=== PATIENT | female | born 1975 | race African-American/Black ===

== ENCOUNTER → 2016-10-09 | Outpatient (CLI) | payer OTHER ==
--- NOTE | ~2016-10-09 | MY6 ---
[facility] A Service of [facility] & [facility] RADIOLOGY TEXT RESULTS PATIENT: XENIA MCGINNIS LOCATION: [facility] : 73 UNIT #: [id number] AGE: [address]: Jef Davila MD SEX: F ORDER DR: [id number] [facility] [address] [place], [place] [address] [id number] O MR#: [id number] Acc #: [id number] NAME: XENIA MCGINNIS : 1975 SEX: F STUDY DATE/TIME: 10/09/2016 14:35 UNIT: [facility] ROOM: STUDY DESCRIPTION: MY Mammogram Dx Dig Ric Attending Physician: Jef Davila M.D. Referring Physician: Jef Davila M.D. Ordering Physician: Jef Davila M.D. Primary Care Physician: Jay Jay Martínez M.D. MEDICAL IMAGING REPORT This report is preliminary unless electronic signature is present EXAM Bilateral digital diagnostic mammogram with CAD 10/09/2016 COMPARISON February 19, 2015, January 04, 2010, August 08, 2005, March 08, 1999 HISTORY 41-year-old female with a complaint of diffuse right breast fullness for approximately 3 months with discomfort along the lower right chest wall where the undersurface of the breast touches the chest wall. She reports a grandmother and aunt with breast cancer. FINDINGS Breast tissues are extremely dense, which may lower the sensitivity of mammography. No suspicious findings are seen in either breast. Given the diffuse nature of the patient's complaint, focused sonographic evaluation was not performed today. I personally performed visual inspection of the right breast. There is no suspicious skin change and there is no palpable lump along the lower right anterior chest wall. In particular there is no peau d'orange appearance and the breasts appear symmetric and there is no nipple inversion. IMPRESSION No mammographic evidence of malignancy in either breast. Generally diffuse breast complaints are benign in etiology. Due to high false-positive rate whole breast ultrasound was not performed today. Patient was instructed that she would likely benefit from 3-D mammography to further evaluate the right breast which could be performed at [facility]. If the patient's symptoms persist, this should be considered. Otherwise annual screening mammography is recommended which would optimally be performed with 3-D mammography given increased sensitivity and diminished false-positive rate as compared to 2-D STS. [facility] A Service of [facility] RADIOLOGY TEXT RESULTS PATIENT: XENIA MCGINNIS LOCATION: [facility] : 73 UNIT #: [id number] AGE: [address]: Jef Davila MD SEX: F ORDER DR: mammography. Findings and recommendations were discussed with the patient today. Patients over the age of 40 are entered into a reminder system with target due date for the next mammogram. A result letter will also be sent to the patient. BIRADS: 1 - Negative Dictated by... Buddy Leroy M.D. THIS IS AN ELECTRONICALLY VERIFIED REPORT Buddy Leroy M.D. at 10/12/2016 6:49 PM Marisol TD: 10/09/2016 18:34 JOB #: [id number] MEDICAL IMAGING REPORT COPY
== END | disposition home or self-care (01) ==
LOC: CMAM 14:16
DX: N64.4 Mastodynia (principal)
CPT/HCPCS: G0204

== ENCOUNTER → 2017-04-02 | Outpatient (CLI) | payer OTHER ==
--- NOTE | ~2017-04-02 | US85 ---
[facility] A Service of [facility] & [facility] RADIOLOGY TEXT RESULTS PATIENT: XENIA MCGINNIS LOCATION: [facility] : 73 UNIT #: [id number] AGE: [address]: Jay Jay Martínez MD SEX: F ORDER DR: [id number] [facility] [address] [place], [place] [address] [id number] O MR#: [id number] Acc #: [id number] NAME: XENIA MCGINNIS : 1975 SEX: F STUDY DATE/TIME: 04/02/2017 15:31 UNIT: [facility] ROOM: STUDY DESCRIPTION: LE Veins Unilat or Ltd Stdy Attending Physician: Jay Jay Martínez M.D. Referring Physician: Jay Jay Martínez M.D. Ordering Physician: Jay Jay Martínez M.D. Primary Care Physician: Jay Jay Martínez M.D. MEDICAL IMAGING REPORT This report is preliminary unless electronic signature is present EXAM Left lower extremity venous duplex ultrasound, 04/02/2017. HISTORY 42-year-old female with left leg pain for 3 weeks. COMPARISON None. FINDINGS Real time johnson-scale, color Doppler, and spectral Doppler analysis of the left lower extremity and deep venous system demonstrates normal venous waveforms with normal compressibility and augmentation throughout. No evidence of left lower extremity deep venous thrombosis. IMPRESSION Negative for left lower extremity DVT. Dictated by... Elias Meneses M.D. THIS IS AN ELECTRONICALLY VERIFIED REPORT Elias Meneses M.D. at 04/03/2017 1:21 PM Shabbir TD: 04/02/2017 20:13 JOB #: [id number] MEDICAL IMAGING REPORT Page 1 of 1 COPY
== END | disposition home or self-care (01) ==
LOC: CNIV 15:04
DX: M79.605 Pain in left leg (principal)
CPT/HCPCS: 93971